=== PATIENT | male | born 1990 | race Caucasian/White ===

== ENCOUNTER 2017-01-13 22:37 | Emergency (ER) | payer OTHER ==
[~2017-01-13] VITALS: Ht 185.4 cm; Wt 81.7 kg
--- NOTE | ~2017-01-13 | EKG ---
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
[2017-01-13] MEDS ORDERED: NOHOMEMEDICATIONS (22:59)
[2017-01-13 23:09] LABS: ABSOLUTE NEUTROPHILS 4.3 thou/uL (1.4-8.2); BASOPHILS 0.4 % (0.0-2.0); EOSINOPHILS 0.8 % (0.0-3.0); HEMATOCRIT 40.9 % (42.0-52.0); HEMOGLOBIN 14.2 gm/dL (14.0-18.0); LYMPHOCYTES 36.7 % (24.0-44.0); MANUAL DIFF NO; MCH 28.9 pg (26.0-34.0); MCHC 34.7 g/dL (28.0-37.0); MCV 83.4 fL (80.0-100.0); MONOCYTES 9.8 % (1.0-8.0); PLATELET COUNT 335 thou/uL (150-400); POLYS 52.3 % (36.0-66.0); RDW 13.1 % (10.5-14.5); WBC 8.3 thou/uL (4.0-11.0)
[2017-01-13 23:12] LABS: ANION GAP 8 mmol/L (7-16); BUN 12 mg/dL (7-18); CALCIUM 9.2 mg/dL (8.5-10.1); CHLORIDE 102 mmol/L (98-107); CO2 27 mmol/L (21-32); GLUCOSE 99 mg/dL (74-106); POTASSIUM 4.2 mmol/L (3.5-5.1); SODIUM 137 mmol/L (136-145)
[2017-01-13 23:21] LABS: TROPONIN-I < 0.04 ng/mL (<0.06)
[2017-01-13 23:39] VITALS: BP 130/82
== END 2017-01-13 23:35 | disposition home or self-care (01) ==
LOC: ER 22:37
PROVIDERS: Emergency Medicine
DX: R09.1 Pleurisy (principal); R07.89 Other chest pain; R20.2 Paresthesia of skin; F10.99 Alcohol use, unspecified with unspecified alcohol-induced disorder; Z88.6 Allergy status to analgesic agent

== ENCOUNTER 2020-07-06 09:27 | Emergency (ER) | payer BC ==
[~2020-07-06] VITALS: Ht 185.4 cm; Wt 97.1 kg
[~2020-07-06 09:27] MED LIST: NOHOMEMEDICATIONS
[2020-07-06 10:29] VITALS: BP 168/96
== END 2020-07-06 10:40 | disposition home or self-care (01) ==
LOC: ER 09:27
DX: S69.81XA Other specified injuries of right wrist, hand and finger(s), initial encounter (principal); Z88.6 Allergy status to analgesic agent; W22.8XXA Striking against or struck by other objects, initial encounter; Y93.89 Activity, other specified; Y92.511 Restaurant or cafe as the place of occurrence of the external cause; Y99.9 Unspecified external cause status